=== PATIENT | female | born 1960 | race African-American/Black ===

== ENCOUNTER 2016-10-05 08:02 | Outpatient (CLI) ==
[2016-10-05 08:49] LABS: CREATININE 0.97 mg/dL (0.60-1.30)
--- NOTE | 2016-10-05 11:22 | MRI ---
EXAM: Brain MRI with and without contrast. HISTORY: Chronic migraine. Ventriculoperitoneal shunt. COMPARISON: None. TECHNIQUE: Multiplanar, multisequence MR images were acquired of the brain before and after adminis tration of intravenous contrast. FINDINGS: There is a right frontal parietal ventriculoperitoneal shunt. The proximal limb traverse s the right frontal lobe and right frontal horn of the lateral ventricle to end in the suprasellar c istern just to the left of midline. This has a small amount of hyperintense T2 signal gliosis or flu id along the ventriculostomy. There is also an adjacent right frontal ventriculostomy tract that is slightly more posteriorly located in the right frontal lobe. This has hyperintense T2 signal and co ntains some fluid which tracks from the peripheral right frontal lobe to the inferior medial right b torrey ganglia. The ventricles and sulci are normal in size. Metallic artifact from the reservoir in the right parietal scalp limits evaluation of the superior lateral right frontal lobe. There are n o abnormal extra-axial fluid collections. The brain parenchyma has no diffusion restriction to suggest acute hypoperfusion or infarction. Por tions of the right frontal, parietal and temporal lobes are obscured by metallic artifact from the p atient's shunt reservoir. No additional T2 hyperintensities are identified separate from the ventri culostomy tracts. There is no abnormal dark gradient echo signal. After administration of gadolini um, no enhancing masses are noted. The corpus callosum is normal in configuration. The pituitary g land is small. The infundibulum is near midline. The cerebellar tonsils extend 3.7 mm below the fo ramen magnum consistent with ectopia. This produces minor crowding at the craniocervical junction. There are no intraorbital masses. There is mild thickening of the calvarium that is greatest involv ing the frontal and parietal bones. Small mucous retention cysts are present in both maxillary antr a. There is fatty infiltration of the parotid glands bilaterally. Middle ears and mastoids are glenis ar. No abnormal contrast enhancement is present in the internal auditory canals or labyrinthine str uctures. Flow voids are present in the major intracranial arteries. There is dolichoectasia of the cavernous segments of both internal carotid arteries. The basilar artery and vertebral artery flow voids are small and there are mildly dominant bilateral posterior communicating arteries. Dural venous sinus es are patent. Impression: 1. No hydrocephalus in this patient with a right frontoparietal ventriculoperitoneal shunt. 2. No intracranial mass, hemorrhage or acute cerebral infarct. 3. Cerebellar tonsillar ectopia.
== END 2016-10-05 08:03 | disposition home or self-care (01) ==
LOC: RAD 08:02
PROVIDERS: ATTEND Internal Medicine
DX: G43.909 Migraine, unspecified, not intractable, without status migrainosus (principal); Z98.2 Presence of cerebrospinal fluid drainage device
CPT/HCPCS: 36415; 82565

== ENCOUNTER 2017-04-11 10:18 | Outpatient (CLI) ==
--- NOTE | 2017-04-11 11:27 | MAMMO ---
EXAM: Bilateral digital diagnostic mammogram History: Bilateral breast nodules. Comparison: Bilateral mammogram 03/23/2017 Findings: Breast density is fatty. Additional views of bilateral breasts confirm the bilateral elizabeth st nodules in question. No suspicious microcalcifications. Impression: Indeterminate bilateral breast nodules. Recommend further evaluation with ultrasound. BIRADS 0
--- NOTE | 2017-04-11 11:51 | US ---
EXAM: Bilateral breast ultrasound. History: Bilateral breast nodules. Comparison: Bilateral diagnostic mammogram 04/11/2017 Technique: Multiple sonographic images through the bilateral breast were obtained. Color duplex Dop pler was used to interrogate vascular flow. Findings: At 11 o'clock within the left breast 11 cm from nipple there is a 0.7 cm x 0.3 cm x 0.7 cm oval well circumscribed nodule. This could represent a lymph node or complicated cyst. This may cor relate with mammography. At 9 o'clock within the right breast there is a 0.6 cm x 0.2 cm x 0.3 cm hypoechoic nodule that could represent a lymph node or cyst cluster. This may correlate with mammography. Impression: Probably benign bilateral breast nodules. Recommend 6-month follow-up mammogram and ult rasound to document stability. BIRADS 3
== END 2017-04-11 10:19 | disposition home or self-care (01) ==
LOC: RAD 10:18
PROVIDERS: ATTEND Internal Medicine
DX: R92.8 Other abnormal and inconclusive findings on diagnostic imaging of breast (principal)

== ENCOUNTER 2017-11-28 08:55 | Outpatient (CLI) ==
--- NOTE | 2017-11-28 09:59 | US ---
EXAM: Bilateral breast ultrasound. History: 6-month follow-up bilateral breast nodules. Comparison: Bilateral breast ultrasound 04/11/2017, bilateral mammogram 11/28/2017 Technique: Multiple sonographic images through the bilateral breasts were obtained. Color duplex Do ppler was used to interrogate vascular flow. Findings: At 9 o'clock within the right breast 5 cm from nipple there is a 5 mm cyst cluster and is n ot significantly changed. No sonographic abnormalities were seen within the left breast. Impression: Benign right breast cyst cluster. Recommend return to routine screening mammography janine gil. BIRADS 2
--- NOTE | 2017-11-28 10:02 | MAMMO ---
EXAM: Bilateral digital diagnostic mammogram (2-D and 3-D) History: Follow-up bilateral breast nodules. Comparison: Bilateral diagnostic mammogram 04/11/2017 Findings: MLO and CC views of bilateral breasts demonstrate scattered fibroglandular breast parenchy ma. CAD was reviewed by the radiologist. Tomosynthesis was performed. Stable right breast nodule. Left breast nodule is no longer clearly identified. No developing masses and no suspicious microcalci fications. No architectural distortion. Impression: Indeterminate right breast nodule and left breast nodule is no longer clearly identified mammographically. Recommend further evaluation with bilateral breast ultrasound. BIRADS 0
== END 2017-11-28 08:56 | disposition home or self-care (01) ==
LOC: RAD 08:55
PROVIDERS: ATTEND Internal Medicine
DX: R92.8 Other abnormal and inconclusive findings on diagnostic imaging of breast (principal)

== ENCOUNTER 2018-02-25 11:23 | Emergency (ER) ==
[2018-02-25 11:30] VITALS: BP 136/89; TEMP 96.6; BMI 30.9
--- NOTE | 2018-02-25 12:34 | DI ---
EXAM: PA and lateral views of the chest HISTORY: Pain COMPARISON: None FINDINGS: The cardiomediastinal silhouette is normal. There is no pneumothorax or pleural effusion. There is no consolidation, nodule or mass. Calcified mediastinal lymph nodes are present. There a re is a calcified granuloma in the right upper lobe. There is a YEAST PUMPER shunt tube present. There are jung rgical clips in right upper quadrant. The osseous structures demonstrate degenerative disease of the spine. IMPRESSION: No acute cardiopulmonary process or consolidation
[2018-02-25] MEDS ORDERED: SODIUM CHLORIDE IV STA (12:43)
[2018-02-25] MEDS ORDERED: POTASSIUM CHLORIDE IV STA (12:43)
[2018-02-25] MEDS ORDERED: POTASSIUM CHLORIDE PREMIX RUN 100 ML IV STA (12:48)
--- NOTE | 2018-02-25 12:48 | ED.PDOC ---
General ED Provider: Dr. CARLITOS METCALF Chief Complaint: Chest Pain Stated Complaint: CHEST PAIN Time Seen by Physician: 11:29 Mode of Arrival: Walk-In Information Source: Patient Exam Limitations: No limitations Primary Care Provider: NADIA GUTIERREZ Nursing and Triage Documentation Reviewed and Agree: Yes Does patient meet sepsis criteria?: No System Inflammatory Response Syndrome: Not Applicable Sepsis Protocol: For patient's 13 years and over: Temp is 96.8 and below OR 101 and greater Pulse >90 BPM Resp >20/minute Acutely Altered Mental Status Are patient's symptoms suggestive of a new infection, such as: -Pneumonia -Skin, Soft Tissue -Endocarditis -UTI -Bone, Joint Infection -Implantable Device -Acute Abdominal Infection -Wound Infection -Meningitis -Blood Stream Catheter Infection -Unknown Cardiovascular Complaint Exam - Chest Pain Complaint/Exam Onset: Gradual Duration: 1 DAY Symptoms Are: Still present Timing: Intermittent Length of Chest Pain Episodes: 1 HR Initial Severity: Moderate Current Severity: Mild Location: Reports: Discrete, Midsternal Pain Radiates: Reports: Left shoulder, Neck Character: Reports: Tightness Aggravating: Reports: Movement Alleviating: Reports: Rest Associated Signs and Symptoms: Denies: Diaphoresis, Nausea, Vomiting, Fever, Palpitations, Cough, Hemoptysis, Back pain, Abdominal pain, Dizziness, Short of air, Calf pain, Calf swelling Related Surgical History: Reports: None AMI/ACS Risk Factors: Reports: Hypertension TAD Risk Factors: Reports: Hypertension Pulmonary Embolism Risk Factors: Reports: None Prior Care for this Complaint: No Recent Stress Test: No Recent Echo/LV Function: No JVD Present: No Subcutaneous Emphysema Present: No Diminshed Breath Sounds: No Reproducible Chest Wall Pain: Yes Bilateral Pulses Present: No Unequal Pulses Noted: No If Risk Factors for AMI/ACS Consider: EKG, Cardiac Enzymes Quality Indicators For Acute [place] or Cardiac Chest Pain: EKG in 10min. Review of Systems - Review Of Systems Constitutional: Reports: No symptoms Eyes: Reports: No symptoms Ears, Nose, Mouth, Throat: Reports: No symptoms Respiratory: Reports: No symptoms Cardiac: Reports: No symptoms GI: Reports: No symptoms : Reports: No symptoms Musculoskeletal: Reports: No symptoms Skin: Reports: No symptoms Neurological: Reports: No symptoms Endocrine: Reports: No symptoms Hematologic/Lymphatic: Reports: No symptoms All Other Systems: Reviewed and Negative Past Medical History - Past Medical History Previously Healthy: No Endocrine: Reports: Hypothyroid, Dyslipidemia Cardiovascular: Reports: Hypertension Respiratory: Reports: None Hematological: Reports: None Gastrointestinal: Reports: None Genitourinary: Reports: None Neuro/Psych: Reports: None Musculoskeletal: Reports: None Cancer: Reports: None Last Menstrual Period: none - Surgical History General Surgical History: Reports: None - Family History Family History: Reports: None - Social History Smoking Status: Former smoker Hx Substance Use: No Alcohol Screening: None Physical Exam - Physical Exam Appearance: Well-appearing, No pain distress, Well-nourished Eyes: MATY, EOMI, Conjunctiva clear ENT: Ears normal, Nose normal, Oropharynx normal Respiratory: Airway patent, Breath sounds clear, Breath sounds equal, Respirations nonlabored Cardiovascular: RRR, Pulses normal, No rub, No murmur GI/: Soft, Nontender, No masses, Bowel sounds normal, No Organomegaly Musculoskeletal: Normal strength, ROM intact, No edema, No calf tenderness Skin: Warm, Dry, Normal color Neurological: Sensation intact, Motor intact, Reflexes intact, Cranial nerves intact, Alert, Oriented Psychiatric: Affect appropriate, Mood appropriate Physician Notification - Case Discussed Physician Notified: SEAN ZENDEJAS Time of Notification: 12:57 (TRANSFER) Critical Care Note - Critical Care Note Total Time (mins): 0 Course - Course Hematology/Chemistry: 02/25/18 11:50 02/25/18 11:50 Orders, Labs, Meds: Lab Review 02/25/18 02/25/18 02/25/18 11:50 11:50 11:50 WBC 7.43 RBC 4.41 Hgb 12.8 Hct 38.1 MCV 86.4 MCH 29.0 MCHC 33.6 RDW Coeff of Darin 13.2 Plt Count 216 Immature Gran % (Auto) 0.4 Neut % (Auto) 55.5 Lymph % (Auto) 33.2 [place] % (Auto) 7.1 Eos % (Auto) 3.1 Baso % (Auto) 0.7 Immature Gran # (Auto) 0.0 Neut # (Auto) 4.1 Lymph # (Auto) 2.5 [place] # (Auto) 0.5 Eos # (Auto) 0.2 Baso # (Auto) 0.1 PT 9.4 INR 0.94 APTT 24.5 Sodium 141 Potassium 2.8 L Chloride 103 Carbon Dioxide 29 Anion Gap 11.8 BUN 15 Creatinine 0.80 Estimated GFR (MDRD) 89.00 BUN/Creatinine Ratio 18.75 Glucose 91 Calcium 9.8 Total Bilirubin 0.5 AST 16 ALT 16 Alkaline Phosphatase 121 H Total Creatine Kinase 109 Troponin I < 0.0100 Total Protein 6.9 Albumin 3.5 Globulin 3.4 Albumin/Globulin Ratio 1.03 Orders Category Date Time Status EKG-(ED ONLY) Stat CARDIO 02/25/18 11:49 Completed EKG-(ED ONLY) Stat CARDIO 02/25/18 12:39 Ordered TRANSFER TO OUTSIDE FACILITY .TO [facility] 02/25/18 12:55 [facility] [place] WRITE [facility]SFER/SBAR NOTE ONCE CARE 02/25/18 12:56 Ordered DISCHARGE ASSESSMENT ONCE DISCHARGE 02/25/18 12:56 Ordered WRITE DISCHARGE NOTE ONCE DISCHARGE 02/25/18 12:56 Ordered CBC W/ AUTO DIFF Stat LAB 02/25/18 11:50 Completed COMPREHENSIVE METABOLIC PANEL Stat LAB 02/25/18 11:50 Completed CREATINE KINASE Stat LAB 02/25/18 11:50 Completed D-DIMER Stat LAB 02/25/18 Ordered MAGNESIUM Stat LAB 02/25/18 12:56 Ordered PARTIAL THROMBOPLASTIN TIME Stat LAB 02/25/18 11:50 Received PT WITH INR Stat LAB 02/25/18 11:50 Received TROPONIN I Stat LAB 02/25/18 11:50 Completed Potassium Chloride Additive [Potassium Chloride 10 Meq MEDS 02/25/18 12:43 Ordered Vial] 10 meq 0.9 % Sodium Chloride [Sodium Chloride] 100 ml IV ONCE Potassium Chloride [Potassium Chloride Premix Run] 100 MEDS 02/25/18 12:48 Active ml IV ONCE CHEST, 2 VIEWS PA & LAT Stat RADS 02/25/18 11:49 Completed Medications Generic Name Dose Route Start Last Admin Trade Name Freq PRN Reason Stop Dose Admin Potassium Chloride 100 mls @ 100 mls/hr 02/25/18 12:48 Potassium Chloride Premix [place] IV 02/25/18 13:47 ONCE STA Discontinued Medications Generic Name Dose Route Start Last Admin Trade Name Freq PRN Reason Stop Dose Admin Potassium Chloride 10 meq/ 105 mls @ 100 mls/hr 02/25/18 12:43 Sodium Chloride IV 02/25/18 13:45 ONCE STA Vital Signs: Temp Pulse Resp BP Pulse Ox 02/25/18 11:24 96.6 F L 58 L 20 136/89 98 MP Risk Score MP Risk Score: Risk Score Odds of by 30D 0 0.1 (0.1-0.2) 1 0.3 (0.2-0.3) 2 0.4 (0.3-0.5) 3 0.7 (0.6-0.9) 4 1.2 (1.0-1.5) 5 2.2 (1.9-2.6) 6 3.0 (2.5-3.6) 7 4.8 (3.8-6.1) Departure - Departure Time of Disposition: 12:57 Disposition: TSF SHORT-TRM HOSP Discharge Problem: Chest pain, Hypokalemia Instructions: Angina (DC) Condition: Good Pt referred to PMD for follow-up: Yes IPMP verified?: No Additional Instructions: Please call your Family Physician as soon as possible to schedule a follow-up appointment. Allergies/Adverse Reactions: Allergies Iodinated Contrast- Oral and IV Dye Adverse Reaction (Verified 02/25/18 11:31) Home Medications: Ambulatory Orders Atenolol/Chlorthalidone [Atenolol-Chlorthalidone 100-25] 1 each PO DAILY Atorvastatin Calcium [Lipitor] 20 mg PO DAILY 02/25/18 Cyclobenzaprine HCl [Flexeril] 5 mg PO PRN PRN 02/25/18 Gabapentin [Neurontin] 200 mg PO TID 02/25/18 Levothyroxine Sodium [Synthroid] 75 mcg PO QDAC 02/25/18 Potassium Chloride [K-Dur] 20 meq PO DAILY 02/25/18 Topiramate [Topamax] 150 mg PO DAILY 02/25/18
[2018-02-25] MEDS ORDERED: SODIUM CHLORIDE 0.9%-KCL 20 MEQ 1,000 ML IV STA (13:08)
[2018-02-25] MEDS ORDERED: ASPIRIN CHEWABLE PO STA (13:20)
== END 2018-02-25 13:56 | disposition short-term general hospital (02) ==
LOC: ED 11:23
DX: R07.9 Chest pain, unspecified (principal); E87.6 Hypokalemia; I10 Essential (primary) hypertension; E78.5 Hyperlipidemia, unspecified; E03.9 Hypothyroidism, unspecified; Z79.899 Other long term (current) drug therapy
CPT/HCPCS: 36415; 80053; 82550; 83735; 84484; 85025; 85379; 85610; 85730; 93005; 93010; 96360; 99285

== ENCOUNTER 2018-06-16 21:58 | Emergency (ER) ==
[2018-06-16 22:26] VITALS: BP 151/85; TEMP 98; BMI 34.9
[2018-06-16] MEDS ORDERED: MORPHINE 4 MG/ML VIAL IVP STA (22:27)
[2018-06-16] MEDS ORDERED: ZOFRAN 4 MG/2 ML IVP STA (22:27)
[2018-06-16] MEDS ORDERED: SODIUM CHLORIDE 1,000 ML IV STA (22:27)
[2018-06-16] MEDS ORDERED: MORPHINE 4 MG/ML SYRINGE ONE (22:55)
--- NOTE | 2018-06-16 23:00 | ED.PDOC ---
General ED Provider: Dr. KATHY PATTON Chief Complaint: Abdominal Pain Stated Complaint: Patient is a 57 year old female who comes to the ER with Complaints of Right lower abdominal pain raditating to the back for the past 3 days. Pain has been more consistent today. Rates it at 8/10 Worse when she walks. Has been able to tolorate food up now. Denies any urinary symptoms. Time Seen by Physician: 22:10 Mode of Arrival: Walk-In Information Source: Patient Exam Limitations: No limitations Primary Care Provider: NADIA GUTIERREZ Nursing and Triage Documentation Reviewed and Agree: Yes Does patient meet sepsis criteria?: No System Inflammatory Response Syndrome: Not Applicable Sepsis Protocol: For patient's 13 years and over: Temp is 96.8 and below OR 101 and greater Pulse >90 BPM Resp >20/minute Acutely Altered Mental Status Are patient's symptoms suggestive of a new infection, such as: -Pneumonia -Skin, Soft Tissue -Endocarditis -UTI -Bone, Joint Infection -Implantable Device -Acute Abdominal Infection -Wound Infection -Meningitis -Blood Stream Catheter Infection -Unknown GI Complaint Exam - Abdominal Pain Complaint/Exam Onset: Gradual Duration: 3 days Symptoms Are: Still present Timing: Constant Initial Severity: Severe Current Severity: Severe Location of Pain: Diffuse Radiates To: Reports: Back, Flank (right ) Character: Reports: Aching Aggravating: Reports: Movement Alleviating: Reports: Position (remaining still) Associated Signs and Symptoms: Reports: Back pain. Denies: Nausea, Vomiting, Sore throat AAA Risk Factors: Reports: None Cardiac Risk Factors: Reports: None Ectopic Risk Factors: Reports: None Ovarian Torsion Risk Factors: Reports: None Surgical Obstruction Risk Factors: Reports: None Related Surgical History: Reports: Cholecystectomy, SHIRLEY Patient Rh Status: Unknown Abdominal Findings: Present: Rebound tenderness Differential Diagnoses: Bowel Obstruction, Diverticulitis, Gastroenteritis, UTI , Ovarian Cyst Review of Systems - Review Of Systems Constitutional: Reports: Loss of appetite Eyes: Reports: No symptoms Ears, Nose, Mouth, Throat: Reports: No symptoms Respiratory: Reports: No symptoms Cardiac: Reports: Chest pain (Started after on hour of being in the ER ) GI: Reports: Abdominal pain, Poor appetite. Denies: Constipated, Difficulty swallowing, Nausea, Vomiting : Reports: No symptoms Musculoskeletal: Reports: No symptoms Skin: Reports: No symptoms Neurological: Reports: Anxiety, Unable to move upper ext Endocrine: Reports: No symptoms Hematologic/Lymphatic: Reports: No symptoms All Other Systems: Reviewed and Negative Past Medical History - Past Medical History Previously Healthy: No Endocrine: Reports: Hypothyroid, Dyslipidemia Cardiovascular: Reports: Hypertension Respiratory: Reports: None Hematological: Reports: None Gastrointestinal: Reports: None Genitourinary: Reports: None Neuro/Psych: Reports: None Musculoskeletal: Reports: None Cancer: Reports: None Last Menstrual Period: PT HAS HAD A HYSTERECTOMY - Surgical History General Surgical History: Reports: Hysterectomy, Cholecystectomy, Other (2005 shunt to brain, lymph node removed from neck, neck surgery, tubal x2, ) - Family History Family History: Reports: None - Social History Smoking Status: Current every day smoker, Light tobacco smoker, Vaping Hx Substance Use: No Alcohol Screening: None - Immunizations Tetanus Shot up to Date: (UNKNOWN) Physical Exam - Physical Exam Appearance: Ill-appearing, Obese Pain Distress: Severe Eyes: Conjunctiva clear Neck: Supple Respiratory: Airway patent, Breath sounds clear, Breath sounds equal, Respirations nonlabored Cardiovascular: RRR, Pulses normal, No rub, No murmur GI/: Soft, Bowel sounds normal, Tender (right lower quadrant ) Musculoskeletal: Normal strength, ROM intact, No edema, No calf tenderness Skin: Warm, Dry, Normal color Neurological: Sensation intact, Alert, Oriented Psychiatric: Anxious Interpretation - Radiology Interpretation Radiology Interpretation By: Radiologist Radiology Results: No acute changes Exam Interpreted: CT Scan - EKG Interpretation Time of EKG #1: 23:47 Rate: Booker (53) Rhythm: Sinus Ectopy: None [place]: NL ST Segment: Normal Interpretation: Sinus Bradycaria, Incomplete Re-Evaluation - Re-Evaluation Time of Re-Evaluation: 00:42 Status: Improved Vital Signs Stable: Yes Critical Care Note - Critical Care Note Total Time (mins): 40 (managing migratory pain, Hypokalemia ) Course - Course Hematology/Chemistry: 06/16/18 22:50 06/16/18 22:50 Orders, Labs, Meds: Lab Review 06/16/18 06/16/18 06/16/18 22:50 22:50 22:50 WBC 8.89 RBC 4.61 Hgb 13.4 Hct 40.4 MCV 87.6 MCH 29.1 MCHC 33.2 RDW Coeff of Darin 12.9 Plt Count 214 Immature Gran % (Auto) 0.1 Neut % (Auto) 52.9 Lymph % (Auto) 34.9 [place] % (Auto) 6.9 Eos % (Auto) 4.2 Baso % (Auto) 1.0 Immature Gran # (Auto) 0.0 Neut # (Auto) 4.7 Lymph # (Auto) 3.1 [place] # (Auto) 0.6 Eos # (Auto) 0.4 Baso # (Auto) 0.1 Sodium 144.0 Potassium 2.90 L Chloride 104.0 Carbon Dioxide 30.0 Anion Gap 12.90 BUN 21.0 H Creatinine 0.90 Estimated GFR (MDRD) 78.00 BUN/Creatinine Ratio 23.33 Glucose 120.0 H Calcium 10.30 H Magnesium Total Bilirubin 0.40 AST 29.0 ALT 26.0 Alkaline Phosphatase 98.0 Total Creatine Kinase Troponin I Total Protein 7.70 Albumin 4.50 Globulin 3.20 Albumin/Globulin Ratio 1.40 Amylase 97.0 Lipase 441.0 H Urine Color Yellow Urine Clarity Clear Urine pH 6.0 Ur Specific [place] 1.025 Urine Protein Negative Urine Glucose (UA) Negative Urine Ketones Negative Urine Blood Negative Urine Nitrite Negative Urine Bilirubin Negative Urine Urobilinogen 1.0 Ur Leukocyte Esterase Negative 06/16/18 06/16/18 22:50 22:50 WBC RBC Hgb Hct MCV MCH MCHC RDW Coeff of Darin Plt Count Immature Gran % (Auto) Neut % (Auto) Lymph % (Auto) [place] % (Auto) Eos % (Auto) Baso % (Auto) Immature Gran # (Auto) Neut # (Auto) Lymph # (Auto) [place] # (Auto) Eos # (Auto) Baso # (Auto) Sodium Potassium Chloride Carbon Dioxide Anion Gap BUN Creatinine Estimated GFR (MDRD) BUN/Creatinine Ratio Glucose Calcium Magnesium 2.30 Total Bilirubin AST ALT Alkaline Phosphatase Total Creatine Kinase 102.0 Troponin I < 0.010 Total Protein Albumin Globulin Albumin/Globulin Ratio Amylase Lipase Urine Color Urine Clarity Urine pH Ur Specific [place] Urine Protein Urine Glucose (UA) Urine Ketones Urine Blood Urine Nitrite Urine Bilirubin Urine Urobilinogen Ur Leukocyte Esterase Orders Category Date Time Status EKG-(ED ONLY) Stat CARDIO 06/16/18 23:37 Ordered ED IV/MEDIPORT/POWERPORT .ONCE EMERGENCY 06/16/18 22:27 Active AMYLASE Stat LAB 06/16/18 22:50 Completed CBC W/ AUTO DIFF Stat LAB 06/16/18 22:50 Completed COMPREHENSIVE METABOLIC PANEL Stat LAB 06/16/18 22:50 Completed CREATINE KINASE Stat LAB 06/16/18 22:50 Completed LIPASE Stat LAB 06/16/18 22:50 Completed MAGNESIUM Stat LAB 06/16/18 22:50 Completed TROPONIN I Stat LAB 06/16/18 22:50 Completed URINALYSIS C & S IF INDICATED Stat LAB 06/16/18 22:50 Completed 0.9 % Sodium Chloride [Saline Flush] MEDS 06/16/18 22:27 Ordered 1 syr IVF PRN PRN Mag-Al Plus//Lidocaine [Gi Cocktail] MEDS 06/16/18 23:38 Discontinued 30 ml PO ONCE STA Morphine Sulfate [Morphine 4 mg/ml Syringe] MEDS 06/16/18 22:55 Discontinued 4 mg .ROUTE .STK-MED ONE Morphine Sulfate [Morphine 4 mg/ml Vial] MEDS 06/16/18 22:27 Discontinued 4 mg IVP ONCE STA Ondansetron HCl/Pf [Zofran 4 mg/2 ml] MEDS 06/16/18 22:27 Discontinued 4 mg IVP ONCE STA Potassium Chloride [Potassium Chl 10% Oral Althea] MEDS 06/16/18 23:21 Discontinued 40 meq PO ONCE STA Sodium Chloride 0.9% [Sodium Chloride] 1,000 ml MEDS 06/16/18 22:[address] ABD/PEL WO RENAL STONE PROT Stat RADS 06/16/18 22:27 Completed Medications Generic Name Dose Route Start Last Admin Trade Name Freq PRN Reason Stop Dose Admin Sodium Chloride 1 syr 06/16/18 22:27 06/16/18 22:59 Saline Flush IVF 1 syr PRN PRN Administration To flush IV Discontinued Medications Generic Name Dose Route Start Last Admin Trade Name Freq PRN Reason Stop Dose Admin Al Hydroxide/Mg Hydroxide 30 ml 06/16/18 23:38 06/16/18 23:44 Gi Cocktail PO 06/16/18 23:39 30 ml ONCE STA Administration Sodium Chloride 1,000 mls @ 1,000 mls/hr 06/16/18 22:27 06/16/18 22:57 Sodium Chloride IV 06/16/18 23:26 1,000 mls/hr BOLUS STA Administration Morphine Sulfate 4 mg 06/16/18 22:27 06/16/18 23:03 Morphine 4 Mg/Ml Vial IVP 06/16/18 22:28 Not Given ONCE STA Ondansetron HCl 4 mg 06/16/18 22:27 06/16/18 23:00 Zofran 4 Mg/2 Ml IVP 06/16/18 22:28 4 mg ONCE STA Administration Potassium Chloride 40 meq 06/16/18 23:21 06/17/18 00:28 Potassium Chl 10% Oral Althea PO 06/16/18 23:22 40 meq ONCE STA Administration Vital Signs: Temp Pulse Resp BP Pulse Ox 06/16/18 21:59 98 F 61 20 151/85 H 97 Departure - Departure Time of Disposition: 23:50 Disposition: HOME SELF-CARE Discharge Problem: Abdominal pain, Hypokalemia Instructions: Acute Abdominal Pain (ED) Condition: Fair Pt referred to PMD for follow-up: Yes IPMP verified?: No Additional Instructions: follow up with Dr Gutierrez In the morning. continue your home potassium tablets. Allergies/Adverse Reactions: Allergies Iodinated Contrast- Oral and IV Dye Adverse Reaction (Verified 06/16/18 22:11) Home Medications: Ambulatory Orders Atenolol/Chlorthalidone [Atenolol-Chlorthalidone 100-25] 1 each PO DAILY Atorvastatin Calcium [Lipitor] 20 mg PO DAILY 02/25/18 Cyclobenzaprine HCl [Flexeril] 5 mg PO PRN PRN 02/25/18 Gabapentin [Neurontin] 200 mg PO TID 02/25/18 Levothyroxine Sodium [Synthroid] 50 mcg PO QDAC 02/25/18 Potassium Chloride [K-Dur] 20 meq PO BID 02/25/18 Topiramate [Topamax] 150 mg PO DAILY 02/25/18 Disposition Discussed With: Patient, Family
--- NOTE | 2018-06-16 23:03 | CT ---
EXAM: CT of the abdomen and pelvis without contrast. HISTORY: Right lower quadrant pain. PROCEDURE: Contiguous axial CT images of the abdomen and pelvis without contrast with coronal and sa gittal reformats. FINDINGS: The liver is normal in appearance. The gallbladder is surgically absent. The pancreas, sp tamia, adrenal glands and right kidney are normal in appearance. There is a 4 mm nonobstructive calci fication in the left kidney. No ureterolithiasis or hydronephrosis. The abdominal aorta is within n ormal limits in diameter. The visualized loops of bowel and appendix are normal in appearance. No fr ee fluid or free air in the abdomen or pelvis. There is a ventriculoperitoneal shunt with the tip ter minating in the right anterior abdomen. The bladder is minimally filled with no abnormality identifie d. The uterus is surgically absent. There are phleboliths in the lower pelvis. There are degenerativ e changes in the spine. Impression: No acute findings in the abdomen or pelvis. Nonobstructive left nephrolithiasis as described. Ventriculoperitoneal shunt as described. Cholecystectomy. Hysterectomy. Normal appendix.
[2018-06-16] MEDS ORDERED: POTASSIUM CHL 10% ORAL SOL PO STA (23:21)
[2018-06-16] MEDS ORDERED: GI COCKTAIL PO STA (23:38)
== END 2018-06-17 00:52 | disposition home or self-care (01) ==
LOC: ED 21:58
DX: R10.9 Unspecified abdominal pain (principal); E87.6 Hypokalemia; I10 Essential (primary) hypertension; R07.9 Chest pain, unspecified; E03.9 Hypothyroidism, unspecified; E78.5 Hyperlipidemia, unspecified; Z79.899 Other long term (current) drug therapy; F17.210 Nicotine dependence, cigarettes, uncomplicated
CPT/HCPCS: 36415; 74176; 80053; 81001; 82150; 82550; 83690; 83735; 84484; 85025; 93005; 93010; 96361; 96374; 96375; 99283

== ENCOUNTER 2018-06-19 14:06 | Outpatient (CLI) ==
--- NOTE | 2018-06-19 16:15 | US ---
EXAM: Limited abdominal ultrasound. History: Right lower quadrant abdominal pain. Comparison: CT abdomen pelvis 06/16/2018 Technique: Multiple sonographic images through the abdomen were obtained. Color duplex Doppler was used to interrogate vascular flow. Findings: No masses, cysts or fluid collections identified. The appendix was not seen. Impression: No sonographic abnormalities
== END 2018-06-19 14:07 | disposition home or self-care (01) ==
LOC: RAD 14:06
PROVIDERS: ATTEND Internal Medicine
DX: R10.31 Right lower quadrant pain (principal); R93.5 Abnormal findings on diagnostic imaging of other abdominal regions, including retroperitoneum

== ENCOUNTER 2018-12-26 14:04 | Outpatient (CLI) | payer OTHER | END 2018-12-26 14:05 | disposition home or self-care (01) | LOC: LAB 14:04 | PROVIDERS: ATTEND Internal Medicine | DX: E87.6 Hypokalemia (principal) | CPT/HCPCS: 36415; 80053 ==

== ENCOUNTER 2018-12-27 10:15 | Outpatient (CLI) | payer OTHER | END 2018-12-27 10:16 | disposition home or self-care (01) | LOC: LAB 10:15 | PROVIDERS: ATTEND Internal Medicine | DX: E87.6 Hypokalemia (principal) | CPT/HCPCS: 36415; 80053 ==

== ENCOUNTER 2019-04-03 09:09 | Outpatient (CLI) ==
--- NOTE | 2019-04-04 11:06 | MAMMO ---
EXAM: Bilateral digital screening mammogram (2-D and 3-D) History: Screening Comparison: Bilateral mammogram 11/28/2017 Findings: MLO and CC views of bilateral breasts demonstrate predominately fatty replaced breast pare nchyma. CAD was reviewed by the radiologist. Tomosynthesis was performed. There are no dominant ma sses, no suspicious microcalcifications and no architectural distortions Impression: Stable negative mammogram. Recommend followup routine screening mammography in 1 year. BI-RADS 1, benign
== END 2019-04-03 09:10 | disposition home or self-care (01) ==
LOC: RAD 09:09
PROVIDERS: ATTEND Internal Medicine
DX: Z12.31 Encounter for screening mammogram for malignant neoplasm of breast (principal)